=== PATIENT | female | born 1995 | race African-American/Black ===

== ENCOUNTER 2017-03-29 22:55 | Emergency (ER) | payer BC ==
[2017-03-29 23:20] VITALS: BP 125/83; PULSE 73; TEMP 98.5; BMI 30.3
--- NOTE | 2017-03-30 00:46 | PDOC ---
History of Present Illness - General History Source: Patient Exam Limitations: No Limitations - History of Present Illness Initial Comments: 03/30/17 00:57 The patient is a 21 year old female with a significant PMH of asthma who presents to the emergency department with foot pain beginning approximately yesterday. The patient reports an infection within the web space between the fourth and fifth toe. The patient reports receiving antibiotics from her PCP but nothing for the pain. The patient became concerned after she removed some of the gauze and saw that she had some exudate coming from the site. The patient denies chest pain, shortness of breath, headache and dizziness. Denies fever, chills, nausea, vomit, diarrhea and constipation. Denies dysuria, frequency, urgency and hematuria. Allergies: Almonds, Fruit, Pollen Past surgical history: Not known Social history: Moderate alcohol use. No reported cigarette or drug use. <Gagandeep Bernal - Last Filed: 03/30/17 00:57> - General History Source: Patient <Omer Perry - Last Filed: 03/30/17 19:17> - General Chief Complaint: Wound Stated Complaint: FOOT PAIN Time Seen by Provider: 03/30/17 00:33 Past History <Gagandeep Bernal - Last Filed: 03/30/17 00:57> - Past Medical History Asthma: Yes - Psycho/Social/Smoking Cessation Hx Anxiety: No Suicidal Ideation: No Smoking History: Never smoked Have you smoked in the past 12 months: No Information on smoking cessation initiated: No Hx Alcohol Use: Yes Drug/Substance Use Hx: No Substance Use Type: None <Omer Perry - Last Filed: 03/30/17 19:17> - Past Medical History Allergies/Adverse Reactions: Allergies Allergy/AdvReac Type Severity Reaction Status Date / Time almonds Allergy Uncoded 02/23/14 20:50 fruit Allergy Uncoded 02/23/14 20:50 pollen Allergy Uncoded 02/23/14 20:50 Home Medications: Ambulatory Orders Norethindrone-E.estradiol-Iron [Junel Fe 1 mg-20 Mcg Tablet] 1 each PO DAILY 12/08 Ibuprofen 800 mg PO TID #30 tablet 03/30/17 Oxycodone HCl/Acetaminophen [Percocet 5-325 mg Tablet] 1 - 2 tab PO Q6H #20 tablet MDD 4 03/30/17 Review of Systems - Review of Systems Comments:: 03/30/17 00:57 CONSTITUTIONAL: Absent: fever, chills, diaphoresis, generalized weakness, malaise, loss of appetite HEENT: Absent: rhinorrhea, nasal congestion, throat pain, throat swelling, difficulty swallowing, mouth swelling, ear pain, eye pain, visual Changes CARDIOVASCULAR: Absent: chest pain, syncope, palpitations, irregular heart rate, lightheadedness , peripheral edema RESPIRATORY: Absent: cough, shortness of breath, dyspnea with exertion, orthopnea, wheezing, stridor, hemoptysis GASTROINTESTINAL: Absent: abdominal pain, abdominal distension, nausea, vomiting, diarrhea, constipation, melena, hematochezia GENITOURINARY: Absent: dysuria, frequency, urgency, hesitancy, hematuria, flank pain, genital pain MUSCULOSKELETAL: (+) Foot pain Absent: arthralgia, joint swelling SKIN: Absent: rash, itching, pallor HEMATOLOGIC/IMMUNOLOGIC: Absent: easy bleeding, easy bruising, lymphadenopathy, frequent infections ENDOCRINE: Absent: unexplained weight gain, unexplained weight loss, heat intolerance, cold intolerance NEUROLOGIC: Absent: headache, focal weakness or paresthesias, dizziness, unsteady gait, seizure, mental status changes, bladder or bowel incontinence PSYCHIATRIC: Absent: anxiety, depression, suicidal or homicidal ideation, hallucinations. <Gagandeep Bernal - Last Filed: 03/30/17 00:57> *Physical Exam - Vital Signs Last Vital Signs Temp Pulse Resp BP Pulse Ox 98.5 F 73 18 125/83 99 03/29/17 23:17 03/29/17 23:17 03/29/17 23:17 03/29/17 23:17 03/29/17 23:17 - Physical Exam Comments: 03/30/17 00:57 GENERAL: Well developed, well nourished. Awake and alert. No acute distress. HEENT: Normocephalic, atraumatic. PERRLA, EOMI. No conjunctival pallor. Sclera are non- icteric. Moist mucous membranes. Oropharynx is clear. NECK: Supple. Full ROM. No JVD. Carotid pulses 2+ and symmetric, without bruits. No thyromegaly. No lymphadenopathy. CARDIOVASCULAR: Regular rate and rhythm. No murmurs, rubs, or gallops. Distal pulses are 2+ and symmetric. PULMONARY: No evidence of respiratory distress. Lungs clear to auscultation bilaterally. No wheezing, rales or rhonchi. ABDOMINAL: Soft. Non-tender. Non-distended. No rebound or guarding. No organomegaly. Normoactive bowel sounds. MUSCULOSKELETAL Normal range of motion at all joints. No bony deformities or tenderness. No CVA tenderness. EXTREMITIES: (+) Small open blister in web space b/w left fourth and fifth toe, currently not draining exudates. No area of surrounding cellulitis. No cyanosis. No clubbing. No edema. No calf tenderness. SKIN: Warm and dry. Normal capillary refill. No rashes. No jaundice. NEUROLOGICAL: Alert, awake, appropriate. Cranial nerves 2-12 intact. No deficits to light touch and temperature in face, upper extremities and lower extremities. No motor deficits in the in face, upper extremities and lower extremities. Normoreflexic in the upper and lower extremities. Normal speech. Toes are downgoing bilaterally. Gait is normal without ataxia. PSYCHIATRIC: Cooperative. Good eye contact. Appropriate mood and affect. <Gagandeep Bernal - Last Filed: 03/30/17 00:57> - Vital Signs Last Vital Signs Temp Pulse Resp BP Pulse Ox 98.5 F 73 18 125/83 99 03/29/17 23:17 03/29/17 23:17 03/29/17 23:17 03/29/17 23:17 03/29/17 23:17 <Omer Perry - Last Filed: 03/30/17 19:17> Medical Decision Making - Medical Decision Making 03/30/17 19:16 Dr. Perry: The scribe's documentation has been prepared under my direction and personally reviewed by me in its entirery. I confirm that the note above accurately reflects all work, treatment, procedures, and medical decision making performed by me. <Omer Perry - Last Filed: 03/30/17 19:17> *DC/Admit/Observation/Transfer - Attestations Scribe Attestion: 03/30/17 00:57 Documentation prepared by Gagandeep Bernal, acting as medical practice assistant for Omer Perry MD. <Gagandeep Bernal - Last Filed: 03/30/17 00:57> - Discharge Dispostion Admit: No <Omer Perry - Last Filed: 03/30/17 19:17> Diagnosis at time of Disposition: Wound infection - Discharge Dispostion Disposition: HOME Condition at time of disposition: Stable - Prescriptions Prescriptions: Ibuprofen 800 mg PO TID #30 tablet Oxycodone HCl/Acetaminophen [Percocet 5-325 mg Tablet] 1 - 2 tab PO Q6H #20 tablet MDD 4 - Patient Instructions Printed Discharge Instructions: DI for Wound Infection Additional Instructions: take medication as directed. continue taking antibiotics. Keep wound clean and dry. wash twice daily. followup with your primary care doctor
[2017-03-30] MEDS ORDERED: IBUPROFEN 400 MG TABLET (FP) PO ONE ×2 (00:47→00:49)
== END 2017-03-30 01:32 | disposition home or self-care (01) ==
LOC: JER 22:55
DX: S91.105A Unspecified open wound of left lesser toe(s) without damage to nail, initial encounter (principal); S90.425A Blister (nonthermal), left lesser toe(s), initial encounter; X58.XXXA Exposure to other specified factors, initial encounter; Y93.9 Activity, unspecified
CPT/HCPCS: 99281-25